=== PATIENT | male | born 1965 | race Caucasian/White ===

== ENCOUNTER 2024-04-02 10:13 | Day surgery (SDC) | payer OTHER, SELFPAY ==
[2024-04-02] VITALS (25 sets, daily range): BP systolic 128–171; BP diastolic 74–113; PULSE 49–147; RESP 14–20; TEMP 36.2–36.6; O2SAT 95–100; BMI 32.4
[2024-04-02] MEDS: OXYCODONE (CR) 10 MG TAB.ER.12H PO (10:15)
[2024-04-02] MEDS: ACETAMINOPHEN 500 MG TABLET 1000 MG PO ×2 (10:15→18:00)
--- NOTE | 2024-04-02 10:22 | W.ANESCHARGE ---
Anesthesia Charges Start Date/Time Anesthesia Start Date: 04/02/24 Anesthesia Start Time: 12:09 Stop Date/Time Anesthesia Stop Date: 04/02/24 Anesthesia Stop Time: 15:50
--- NOTE | 2024-04-02 11:26 | W.PM.H&PU ---
History & Physical Update History & Physical Update H&P Reviewed and patient assessed: No changes noted
--- NOTE | 2024-04-02 11:28 | CRLHL7_ITS ---
For Patients: As a result of the Cures Act, medical imaging exams and procedure reports are released immediately into your electronic medical record. You may view this report before your referring provider. If you have questions, please contact your health care provider. INDICATION: Right hip arthroplasty. COMPARISON: 04/02/2024 TECHNIQUE: Views: 2 FINDINGS/IMPRESSION: Intact total right hip arthroplasty. Expected postsurgical periarticular soft tissue emphysema. The sacrum and bilateral iliac wings are partially excluded from the field of view. Dictated by Anurag Khan MD @ 04/03/2024 11:00:21 AM (Electronically Signed)
[2024-04-02] MEDS: LACTATED RINGERS 1000 ML 1,000 ML 100 ML IV ×2 (11:35→14:49)
[2024-04-02] MEDS: MIDAZOLAM HCL 1 MG/ML inj IVP (11:50)
[2024-04-02] MEDS: fentaNYL 100 MCG/2 ML inj IVP (11:50)
--- NOTE | 2024-04-02 11:54 | SUR.PREOP ---
TIME?OUT:?1148, right hip PT/RN/MDA?VERIFICATION?OF?SURGICAL?SITE,?PROCEDURE,?AND?CONSENT OBTAINED?PRIOR?TO?INVASIVE?PROCEDURE.
--- NOTE | 2024-04-02 12:00 | CRLHL7_ITS ---
For Patients: As a result of the Cures Act, medical imaging exams and procedure reports are released immediately into your electronic medical record. You may view this report before your referring provider. If you have questions, please contact your health care provider. Indication: Right total hip arthroplasty. Technique: Single fluoroscopic intraoperative image of the right hip were submitted for review. 41 seconds of intraoperative fluoroscopy was performed. Comparison: None available. Findings/impression : Fluoroscopic intraoperative image of the right hip demonstrate anatomic alignment of the right hip prosthesis components on single view. No displaced fracture is seen. Please refer to operative report for additional details. Dictated by Marta Portillo MD @ 04/03/2024 9:46:26 AM (Electronically Signed)
--- NOTE | 2024-04-02 12:21 | P.NB_ITS ---
Nerve Block Nerve Block Time Seen by Provider: 11:48 Date Seen: 04/02/24 Type of block requested by surgeon for post-operative analgesia: DEMIAN/LFCN Side: right Time out performed: Yes Verification of patient name: Yes Verification of date of : Yes Site marking: site marked Name of person performing procedure: Kavin Continuous monitoring Was continuous monitoring of O2 sat, B/P, cardiac cath technician, recorded every 15 minutes?: Yes Procedure Checklist: sterile prep, needles and gloves Ultrasound guided. Images saved: Yes Medications given in 5ml increments after negative aspiration: Ropivicaine %: 0.5 mL: 30 Needle gauge: 20 Precedex (mcg): 25 Patient tolerated procedure well: Yes Additional comments: Needle noted below psoas tendon needle noted adjacent to LFCN Block Charges Block Charge (with Pro Fee): Other Periph Nerve Block Use of Ultrasound Machine for Block: Yes- US Guidance/pain block
[2024-04-02] MEDS: CEFAZOLIN 2 GM in 0.9 % SODIUM CHLORIDE Mini-bag 100 ML IVPB ×2 (12:32→18:00)
[2024-04-02] MEDS: TRANEXAMIC ACID 100 MG/ML INJ 1000 MG IV (12:37)
--- NOTE | 2024-04-02 14:51 | PM.ORPRC ---
Procedure Note Date of procedure: 04/02/24 Procedure: PREOPERATIVE DIAGNOSIS: 1. Right hip osteoarthritis, severe, primary POSTOPERATIVE DIAGNOSIS: 1. Right hip osteoarthritis, severe, primary PROCEDURE: 1. Right total hip arthroplasty-anterior approach - modified 22 (50% added time and difficulty for this case due to the patient's general body size (BMI 32.4 obese, 102 kg), his youth, and large muscle envelope around his thighs/hip. This made it very difficult to obtain exposure in a safe manner, and much more difficult to achieve safe reduction and dislocation of the hip during trialing.) 2. [id number] - intraoperative fluoroscopy up to 1 hour. SURGEON: Rashawn Hines MD. ELEVATOR OPERATOR SERVICE: Bj Sutton PA-C; ELLA Menard - Of note, a skilled assistant accounting manager was critical for this case to aid in patient positioning, tissue retraction, limb manipulation/positioning, and closure. ANESTHESIA: General endotracheal anesthetic EBL: 900 mL IMPLANTS: DePuy J&J uncemented total hip Aurora cup size 52, hole eliminator, +4 neutral liner Actis stem, high offset, size 7 +5 mm ceramic 36 mm head COMPLICATIONS: None evident INDICATIONS: The patient is a pleasant 58-year-old male who has experienced severe right hip pain and difficulty bearing weight. Workup included x-rays which revealed severe osteoarthrosis in the hip. Given the deformity, the dysfunction, and the pain, as well as the failure of nonoperative management, recommendation was made for surgery. FINDINGS: Full-thickness diffuse cartilage loss throughout the femoral head and acetabulum. Osteophytes around the femoral head/neck junction. No loose bodies. Large effusion upon entering the joint. Thick muscular envelope surrounding the thigh. DESCRIPTION OF PROCEDURE: Following a thorough discussion of risks, benefits, and alternatives consent was obtained and the right hip was marked. The patient was brought to the operating room and placed supine on the operating table. Induction of anesthesia was undertaken. 2 g IV Ancef and 1 g tranexamic acid was administered within 1 hr of incision preoperatively. Proper time-out was performed identifying proper patient, site, procedure. The operative extremity was prepped and draped in the appropriate sterile fashion using ChloraPrep after the patient was positioned on the [place] table with head in neutral alignment and all bony prominences well padded. C-arm fluoroscopic imaging was utilized to confirm proper pelvis rotation and position, and to get true AP films of both the contralateral left, and the affected right hip. This is for comparison. A longitudinal incision was made starting approximately 1 cm distal to the ASIS, and 3-4 cm lateral. The incision was extended distally aiming toward the lateral border the patella. Sharp incision through skin and bovie cautery through the subcutaneous tissue allowed identification of the TFL fascia. This was sharply divided, and the fascia bluntly released from the muscle fibers as we dissected medial. Upon coming to the medial border, we were able to retract the TFL laterally, and penetrated the deeper fascia and identify the crossing circumflex vessels. These were ligated/cauterized. The rectus was elevated from the capsule, and retractors placed laterally and medially along the femoral neck to help with visualization of the capsule. We then performed an inverted T capsulotomy. The capsule was tagged for later repair. Retractors were placed inside the capsule. The femoral neck was visualized after releasing medially down to the lesser trochanter, along the saddle laterally, and up onto the acetabulum. The femoral neck cut was made in line with our preoperative templating. The head was removed in a single piece, and sized. We turned our attention to acetabular preparation. Initially, the labrum was resected from around the perimeter, the pulvinar was excised, allowing us to visualize the false wall. We started the reaming with a 43 mm reamer. This was medialized down to the true wall. We then enlarged our reamers sequentially up to one size less than the selected cup size. We trialed at the same size and found it to have an excellent fit. The selected cup was then opened, inserted, and impacted in line with the goal of 40? of abduction, and 20-25? of anteversion. This was confirmed on C-arm fluoroscopic imaging to be in the appropriate/goal position. Once the cup was placed we placed a hole eliminator and a liner consistent with preop planning. Attention was turned to the femoral preparation. The limb was extended, externally rotated, and adducted. The posteromedial capsule was released, as retractors were placed allowing excellent access to the proximal femur. Initially a preparing box tender was followed by canal finder followed by various broaches. We broached sequentially up to the size noted above, found it to have excellent rotational control, and trialing various heads and necks, revealed that appropriate neck offset, and the above noted head size provided the greatest stability, and rastafarian of length, and offset. C-arm fluoroscopic imaging confirmed position of the stem, as well as leg lengths, which were compared with the pre procedure all fluoroscopic images. Trial implants were removed, the real femoral stem inserted, as was the appropriate head. After reducing, the leg was placed through range of motion and stability was confirmed anterior, posterior, and lateral. A 3 min Betadine soak was then performed, and thorough irrigation with normal saline followed. Closure of the capsule was performed with #1 PDS. Bleeding was confirmed to be controlled at this stage, and the TFL fascia was closed with #0 strata fix. Subcutaneous, and subcuticular closure was performed with 2-0 Vicryl and 4-0 Monocryl, respectively. Dressings were applied, and the patient was awoken from anesthesia and transferred the PACU in stable condition. A skilled assistant accounting manager was critical for this case to aid in patient positioning, tissue retraction, acetabular and proximal femoral exposure, limb manipulation/positioning, dislocation/relocation, patient safety, and closure. of note, 50% added time and difficulty for this case due to the patient's general body size (BMI 32.4 obese, 102 kg), his youth, and large muscle envelope around his thighs/hip. This required more retractors, varying retractors, increased number of assistants, and made it very difficult to obtain exposure in a safe manner, and much more difficult to achieve safe reduction and dislocation of the hip during trialing. PLAN: 1. Weight bear as tolerated operative extremity. 2. 23 hr perioperative antibiotics. 3. Ice. 4. PT/OT consults for ambulation assistance/mobility education. 5. Social work consult for discharge planning. 6. DVT prophylaxis with at SCDs and Xarelto x5 days followed by aspirin for a total of 1 month..
--- NOTE | 2024-04-02 15:07 | PM.IMCN1 ---
Date of Consult Patient: [facility] Patient Consult date: 04/02/24 Requesting Physician: Orthopedics Primary Care Provider: Tej Hernández MD Consult Narrative Reason for consult: Medical management Narrative: Adonis Wood is a 58 year old male past medical history significant for hypertension, anxiety, depression, back pain, hyperuricemia, previous history of sarcoidosis of the lung is POD#0 s/p right total hip arthroplasty with Dr. Bragg. There have been no perioperative complications or nursing concerns reported. Estimated total blood loss documented as 900 ml. Intermittently bradycardic. Blood pressures adequate, mildly hypertensive, despite blood loss. Has received IV fluids perioperatively. Updated and reviewed the active medical problems, past medical history, past surgical history, social history, allergies and medications in our electronic EMR. Postoperatively, patient complains of acutely worsened chronic back pain, difficult to get comfortable. Normally never lies on his back. Has some hip pain as well. Denies headache or dizziness. Denies chest pain or shortness of breath. No nausea. Tolerating ice chips at this point. Review of Systems Narrative: REVIEW OF SYSTEMS: Complete review of systems performed and negative unless otherwise stated in HPI or below. PFSH PFSH Medical History Sarcoidosis of lung ?D86.0 - Sarcoidosis of lung (ICD-10) Hypertension ?I10 - Essential (primary) hypertension (ICD-10) Cervicalgia ?M54.2 - Cervicalgia (ICD-10) Hyperuricemia ?E79.0 - Hyperuricemia without signs of inflammatory arthritis and tophaceous disease (ICD-10) Depression ?F32.A - Depression, unspecified (ICD-10) Anxiety state, unspecified ?F41.1 - Generalized anxiety disorder (ICD-10) Chewing tobacco dependence ?F17.220 - Nicotine dependence, chewing tobacco, uncomplicated (ICD-10) Opioid abuse ?F11.10 - Opioid abuse, uncomplicated (ICD-10) Alcohol abuse ?F10.10 - Alcohol abuse, uncomplicated (ICD-10) Surgical History History of carpal tunnel surgery of left wrist ?Z98.890 - Other specified postprocedural states (ICD-10) History of lumbar surgery ?Z98.890 - Other specified postprocedural states (ICD-10) History of arthroscopy of left knee (11/19/20) ?Z98.890 - Other specified postprocedural states (ICD-10) Social History Narrative: currently chewing tobacco Smoking Status: Never smoker Do you use any of these nicotine containing products: Smokeless Tobacco Second hand tobacco smoke exposure: No Meds Home Medications and Allergies Home Medications ?Medication ?Instructions ?Recorded ?Confirmed ?Type meloxicam 7.5 mg tablet 7.5 mg PO BID 12/29/23 04/02/24 History tamsulosin 0.4 mg capsule 0.4 mg PO DAILY 12/29/23 04/02/24 History acetaminophen 500 mg tablet 1,000 mg PO Q6H PRN 02/09/24 04/02/24 History (Tylenol Extra Strength) cholecalciferol (vitamin D3) 25 25 mcg PO QDAY 02/09/24 04/02/24 History mcg (1,000 unit) capsule (Vitamin D3) Allergies Allergy/AdvReac Type Severity Reaction Status Date / Time No Known Drug Allergies Allergy Verified 04/02/24 10:37 Exam Narrative: Exam Narrative: PHYSICAL EXAM General: Pleasant, conversant, NAD HEENT: Normocephalic, atraumatic, sclera white, EOMI, oral mucosa moist Cardiovascular: RRR, S1S2. No pitting edema Pulmonary: CTA bilaterally without rhonchi, rales, expiratory wheezes. No dyspnea Abdominal: Soft, nondistended, NTTP Neurological: Alert, answering questions appropriately, cranial nerves intact, no focal findings Extremities: No gross joint deformity or swelling. Postoperative dressing in place, dry. Neurovascularly intact Skin: Warm, dry. Const: Vital Signs, click to edit/add: Vital Signs - 24 hr 04/02/24 10:58 04/02/24 11:50 04/02/24 11:55 Temperature 97.8 F Pulse Rate 65 62 61 Respiratory Rate 20 20 16 Blood Pressure 146/86 H 128/84 131/88 Pulse Oximetry 98 99 100 Oxygen Delivery Me thod Room Air Nasal Cannula Nasal Cannula Oxygen Flow Rate 2 2 04/02/24 12:01 Temperature Pulse Rate 50 L Respiratory Rate 16 Blood Pressure 135/75 Pulse Oximetry 100 Oxygen Delivery Me thod Nasal Cannula Oxygen Flow Rate 2 Assessment and Plan Assessment and plan (1) Osteoarthritis of right hip: Problem comment: -POD#0 s/p R FREEDOM -perioperative management including pain management and anticoagulation per Orthopedic surgery -encourage postoperative pulmonary hygiene -PT OT consults -plan to discharge home tomorrow with Status: Acute (2) Hypertension: Problem comment: -not currently managed with medications. No history of hyperlipidemia Status: Acute Total Time Spent Total Time Spent: Total time spent caring for the patient today was 45 minutes. This includes time spent for the visit reviewing the chart, time spent during the visit, time spent after the visit and documentation and planning in coordination of care.
--- NOTE | 2024-04-02 15:57 | W.ANESCHARGE ---
Anesthesia Charges Start Date/Time Anesthesia Start Date: 04/02/24 Anesthesia Start Time: 12:09 Stop Date/Time Anesthesia Stop Date: 04/02/24 Anesthesia Stop Time: 15:50
[2024-04-02] MEDS: fentaNYL 100 MCG/2 ML inj 50 MCG IVP ×2 (16:00→16:11)
[2024-04-02] MEDS: HYDROmorphone 0.5 mg/0.5 ml inj IVP ×2 (16:56→18:00)
[2024-04-02] MEDS: OXYCODONE 5 MG TABLET PO ×2 (19:06→22:22)
--- NOTE | 2024-04-02 19:43 | PC.NURSE ---
Nursing Care Hours: [id number] Pt arrived to unit from PACU awake but drowsy and somewhat restless. C/o pain to right hip and back spasms. Attempted to reposition with minimal relief. Pt shivering but then moving blankets on and off, needing assistance with frequent urination using urinal. During routine check, pt c/o hyperventilating feeling without observable respiratory distress. Pulse on monitor showed 140's HR, radial pulse palpated and slightly faint. EKG done, shows sinus tach. While staff preparing to give bolus of fluids and metoprolol, pt switched to NSR rate around 60's and pt anxious symptoms relieved. Bolus and meds held. Tele monitor placed. Pt assisted to dangle position to relieve low back pain. Once staff deemed safe, Ax2 with walker and gait belt to recliner, tolerated well. On and off shivering rest of shift, relieved by warm blankets. tolerated regular diet. IS used.
[2024-04-02] MEDS: TAMSULOSIN HCL 0.4 MG CAPSULE PO (22:21)
[2024-04-02] MEDS: SENNOSIDES 1 TAB TABLET 2 TAB PO (22:23)
[2024-04-03] MEDS: hydrOXYzine pamoate 25 MG CAPSULE PO (01:28)
[2024-04-03] MEDS: OXYCODONE 5 MG TABLET PO ×3 (01:28→09:11)
[2024-04-03] MEDS: ACETAMINOPHEN 500 MG TABLET 1000 MG PO ×2 (01:31→06:41)
[2024-04-03] MEDS: CEFAZOLIN 2 GM in 0.9 % SODIUM CHLORIDE Mini-bag 100 ML IVPB (03:08)
[2024-04-03 03:36] VITALS: BP 148/68; PULSE 78; RESP 18; TEMP 36.4; O2SAT 97
--- NOTE | 2024-04-03 05:25 | PC.NURSE ---
Pt pleasant and cooperative. Alot of his pain he states is in his knee on the right. VSS He is eating and voiding well. He has been restless a majority of the night. he has been given pain meds appropiately. He was up in chair for a while this afternoon. He walked to the door and back to bed. Hip drsg is CDI has been having ice on it. pt home with in the am.
[2024-04-03 06:45] LABS: Hemoglobin* 11.3 gm/dL (13.5-17.5); Immature Granulocytes Abs Auto 0.01 K/uL (0.00-0.30); Immature Granulocytes Pct Auto 0.1 %; Lymphocytes Percent Auto 17.9 % (20-44); Mean Corpuscular HGB Conc 33 gm/dL (32-36); Mean Corpuscular Hemoglobin 30 pg (26-34); Mean Corpuscular Volume 90 fL (80-100); Monocytes Percent Auto 10.8 % (0.0-11.0); Neutrophils Absolute Auto 5.82 K/uL (1.7-7.0); Neutrophils Percent Auto 71.2 % (42.0-72.0); Platelet Count* 201 K/uL (140-440); RDW Coefficient of Variation % 13.1 % (11.5-15.5); White Blood Count* 8.17 K/uL (4.50-11.00)
[2024-04-03 06:46] LABS: Slide Review Reflex No
[2024-04-03 06:58] LABS: Potassium* 3.9 mmol/L (3.6-5.1); Sodium* 135 mmol/L (135-149)
[2024-04-03 07:00] VITALS: BP 137/79; PULSE 70; RESP 18; TEMP 37.1; O2SAT 98
[2024-04-03 07:01] LABS: Blood Urea Nitrogen* 17 mg/dL (7-30); Creatinine* 0.8 mg/dL (0.5-1.5); Est. Creatinine Clearance* 106.46; Estimated Glomerular Filt Rate 104 ml/min
[2024-04-03] MEDS: SENNOSIDES 1 TAB TABLET 2 TAB PO (09:11)
--- NOTE | 2024-04-03 09:18 | RESP.RT ---
Patient given Spacer for Albuterol MDI use. Explained advantages of using Spacer with MDI and demonstation of use. Patient returned demonstration with excellent inhalation and timing of breath. Understands the advantage of Spacer and verbally states so.
--- NOTE | 2024-04-03 09:43 | PM.EN ---
Chart Event Note Chart Event Note: Patient had a brief tachycardia episode yesterday around 17 30, lasting less than 5 minutes bring, heart rate was in the 150s. Primary P-wave was hardly seen of though the rate was pretty regular. There is a concern that this might be paroxysmal AFib that the patient is not aware of. He mentioned that this is the 1st time he feels palpitations. I discussed with the patient and his the need to follow-up with PCP postoperatively and if needed be referred to a respite coordinator. I also discussed the implications of this diagnosis if it was proven, likely needs for anticoagulation/rhythm control or just monitoring for now per the specialist recommendation.
--- NOTE | 2024-04-03 09:56 | P.ORPN_ITS ---
Subjective Subjective Date Seen: 04/03/24 Principal diagnosis: Status postop day 1, right total hip arthroplasty - anterior approach Interval history: Patient reports doing well. No acute events over night. Per staff, there was some tachycardia that has since resolved. Patient is not feeling symptomatic regarding this. Notes some ipsilateral right knee pain which is chronic. Pain managed with scheduled and PRN medications, ice. DVT prophylaxis: Rivaroxaban, SCDs, walking. Denies fevers, chills, aches, N/V, CP, SOB/LEES, or lightheadedness. Ortho Exam Narrative Exam Narrative: -Patient appears comfortable in recliner; no apparent acute distress -Alert and oriented times 3 -Operative hip mild-moderately; soft tissues supple; no obvious erythema. Ecch ymosis minimal. Warmth appropriate -Surgical dressing clean, dry, intact; no obvious drainage, no erythematous streaking peripheral to the bandage -Bilateral calves soft and supple; no significant swelling, edema, tenderness, erythema, discoloration, warmth, or palpable cords -2+ DP/PT pulses, intact dermatomes and myotomes distally (5/5 strength). Const Vital Signs, click to edit/add: Vital Signs - 24 hr 04/02/24 10:58 04/02/24 11:50 04/02/24 11:55 Temperature 97.8 F Pulse Rate 65 62 61 Pulse Rate [Right Pulse Oximeter] Respiratory Rate 20 20 16 Blood Pressure 146/86 H 128/84 131/88 Blood Pressure [Left Arm] Pulse Oximetry 98 99 100 Oxygen Delivery Method Room Air Nasal Cannula Nasal Cannula Oxygen Flow Rate 2 2 04/02/24 12:01 04/02/24 15:45 04/02/24 15:50 Temperature 97.2 F L Pulse Rate 50 L 58 L 51 L Pulse Rate [Right Pulse Oximeter] Respiratory Rate 16 18 18 Blood Pressure 135/75 167/90 H 166/96 H Blood Pressure [Left Arm] Pulse Oximetry 100 99 99 Oxygen Delivery Method Nasal Cannula Room Air Room Air Oxygen Flow Rate 2 04/02/24 15:55 04/02/24 16:00 04/02/24 16:05 Temperature Pulse Rate 63 58 L 57 L Pulse Rate [Right Pulse Oximeter] Respiratory Rate 16 16 16 Blood Pressure 170/83 H 155/88 H 160/84 H Blood Pressure [Left Arm] Pulse Oximetry 96 99 99 Oxygen Delivery Method Room Air Room Air Room Air Oxygen Flow Rate 04/02/24 16:10 04/02/24 16:15 04/02/24 16:20 Temperature 97.2 F L Pulse Rate 54 L 52 L 49 L Pulse Rate [Right Pulse Oximeter] Respiratory Rate 16 16 16 Blood Pressure 158/91 H 157/83 H 156/98 H Blood Pressure [Left Arm] Pulse Oximetry 99 98 97 Oxygen Delivery Method Room Air Room Air Room Air Oxygen Flow Rate 04/02/24 16:23 04/02/24 16:30 04/02/24 16:45 Temperature 97.6 F Pulse Rate 54 L 62 63 Pulse Rate [Right Pulse Oximeter] Respiratory Rate 14 14 14 Blood Pressure 171/90 H 135/94 H 153/95 H Blood Pressure [Left Arm] Pulse Oximetry 100 97 97 Oxygen Delivery Method Room Air Room Air Room Air Oxygen Flow Rate 04/02/24 17:00 04/02/24 17:30 04/02/24 18:00 Temperature Pulse Rate 113 H 147 H 87 Pulse Rate [Right Pulse Oximeter] Respiratory Rate 16 18 16 Blood Pressure 169/96 H 145/113 H 148/93 H Blood Pressure [Left Arm] Pulse Oximetry 95 98 97 Oxygen Delivery Method Room Air Room Air Room Air Oxygen Flow Rate 04/02/24 18:30 04/02/24 20:00 04/02/24 21:00 Temperature 97.6 F 97.6 F Pulse Rate 97 97 94 Pulse Rate [Right Pulse Oximeter] Respiratory Rate 16 18 18 Blood Pressure 148/98 H 155/100 H 150/90 H Blood Pressure [Left Arm] Pulse Oximetry 97 99 98 Oxygen Delivery Method Room Air Room Air Room Air Oxygen Flow Rate 04/02/24 22:00 04/02/24 23:00 04/02/24 23:50 Temperature 97.6 F Pulse Rate 77 84 Pulse Rate [Right Pulse Oximeter] 71 Respiratory Rate 18 18 Blood Pressure 145/75 H Blood Pressure [Left Arm] 141/74 H Pulse Oximetry 97 97 Oxygen Delivery Method Room Air Room Air Oxygen Flow Rate 04/02/24 23:58 04/03/24 03:36 04/03/24 07:00 Temperature 97.6 F Pulse Rate Pulse Rate [Right Pulse Oximeter] 78 Respiratory Rate 18 18 Blood Pressure Blood Pressure [Left Arm] 148/68 H Pulse Oximetry 97 97 98 Oxygen Delivery Method Room Air Room Air Room Air Oxygen Flow Rate 04/03/24 07:00 Temperature 98.8 F Pulse Rate Pulse Rate [Right Pulse Oximeter] 70 Respiratory Rate 18 Blood Pressure Blood Pressure [Left Arm] 137/79 Pulse Oximetry 98 Oxygen Delivery Method Room Air Oxygen Flow Rate Assessment and Plan Assessment and plan (1) Osteoarthritis of right hip: Problem details: -POD#1 s/p R FREEDOM -perioperative management including pain management and anticoagulation per Orthopedic surgery -encourage postoperative pulmonary hygiene -PT OT consults -plan to discharge home with Status: Acute (2) Hypertension: Problem details: -not currently managed with medications. No history of hyperlipidemia Status: Acute Plan - Complete 23 hour perioperative antibiotics. - PT/OT consult for education and assistance. - Social work consult for discharge planning - Prescribed analgesics as needed - DVT prophylaxis: Rivaroxaban 5 days, followed by 81 mg aspirin by mouth twice daily, walking, and SCDs - Anticipation is for discharge to home with family/friends today 04/03/2024 if the patient remains medically stable, pain is controlled, and they are safe with mobilization.
--- NOTE | 2024-04-03 11:41 | PC.NURSE ---
shift note: pt up 1/walker with steady gait. pt medicated with PRN meds for 4-8/10 pain in rt knee. slight swelling to rt thigh. drsg c/d/i to rt upper thigh. PP+ bilat. LS clr. Pt using IS indept. dc'd IV intact. Reviewed dc instructions and copies sent with pt at dc. Reviewed belongings and home medications. Items sent with pt at dc.
== END 2024-04-03 11:10 | disposition home or self-care (01) ==
LOC: OR 10:15 → MEDSURG 10:31
PROVIDERS: PCP Family Medicine; Visit Provider Orthopaedic Surgery Sports Medicine
PROC: (CPT 27130; principal; 2024-04-02 12:00)
DX: M16.11 Unilateral primary osteoarthritis, right hip (principal); G89.18 Other acute postprocedural pain; E66.9 Obesity, unspecified; Z68.32 Body mass index [BMI] 32.0-32.9, adult; I10 Essential (primary) hypertension; R00.0 Tachycardia, unspecified; R00.1 Bradycardia, unspecified; G89.29 Other chronic pain; M54.9 Dorsalgia, unspecified; D86.0 Sarcoidosis of lung; F32.A Depression, unspecified; F41.1 Generalized anxiety disorder
CPT/HCPCS: 27130; 01214; 36415; 64450; 73501; 76942; 82565; 84132; 84295; 84520; 85025; 86850; 86900; 86901; 97110; 97116; 97161; 97165; 97535; A9270; C1776; J0330; J0690; J1100; J1171; J2250; J2405; J2704; J2710; J2795; J3010; J3475; J3490; J7120

== ENCOUNTER 2024-05-17 09:15 | Outpatient (RCR) | payer OTHER, SELFPAY | END 2024-07-12 14:46 | disposition home or self-care (01) | PROVIDERS: PCP Family Medicine; Visit Provider Orthopaedic Surgery Sports Medicine | DX: M16.11 Unilateral primary osteoarthritis, right hip (principal); Z96.641 Presence of right artificial hip joint; Z51.89 Encounter for other specified aftercare | CPT/HCPCS: 97032; 97110; 97161; 97164 ==

== ENCOUNTER 2024-07-18 06:08 | Day surgery (SDC) | payer OTHER, SELFPAY ==
[2024-07-18] VITALS (15 sets, daily range): BP systolic 123–186; BP diastolic 70–114; PULSE 64–84; RESP 14–16; TEMP 36.3–36.9; O2SAT 94–100; BMI 34.4
--- OUTSIDE RECORDS SUMMARY | 2024-07-18 06:12 | XMS_ITS | Clinical Summary ---
Author Organization [facility] Address [address] [place] [phone] Phone Care Team Providers Care Platinumsmith Name Role Phone Pcp, No Primary Care Provider Unavailabl e Source Comments [facility] is fully rolled out on [employer]. Last update 11/01/08.[facility] Allergies No known active allergies Medications * Be aware that medications may not be up to date as of this document. Always verify current medications with patient. aripiprazole (ABILIFY) 10 mg oral tabletIndicatio ns:Mixed Bipolar Affective Disorder Take 1 tablet (10 mg) by mouth daily. 30 tablet 05/16/2015 3:47 PM RESUME SPECIALIST 05/16/2015 Active simvastatin (ZOCOR) 20 mg oral tabletIndicatio ns:hyperlipidem ia Take 1 tablet (20 mg) by mouth at bedtime. 30 tablet 05/16/2015 3:47 PM RESUME SPECIALIST 05/16/2015 Active doxepin (SINEQUAN) 25 mg oral capsule Take 1 capsule (25 mg) by mouth at bedtime. 14 capsule 1 05/29/2015 Active Active Problems Problem Noted Date Diagnosed Date Bipolar II disorder (CMS/HHS) 05/19/2015 Alcohol use disorder, moderate, dependence (CMS/ HHS) 05/09/2015 Chronic radicular low back pain 05/09/2015 Suicide attempt (CMS/HHS) 05/07/2015 Resolved Problems Problem Noted Date Diagnosed Date Resolved Date Carbon monoxide poisoning 05/07/2015 Carbon monoxide exposure 05/07/201503/2015 Family History Medical History Relation Name Comments Alcohol abuse Brother Brothers Alcohol abuse Father Alcohol abuse Mother Mental illness Other All over in f amily people on antidepressants - No diagnoses of Bipolar or mood disorder Relation Name Status Comments Brother Father Mother Other Social History Tobacco Use Types Packs/Day Years Used Date Smoking Tobacco: Never Smokeless Tobacco: Current Chew Tobacco Cessation:Ready to Q uit: No; Counseling Given: No Alcohol Use Standard Drinks/Week Comments Yes 0 (1 standard drink = 0.6 oz pur e alcohol) Sex and Gender Information Value Date Recorded Sex Assigned at Not on file Legal Sex Male 1:45 PM RESUME SPECIALIST Gender Identity Not on file Sexual Orientation Not on file Occupation Industry Job Start Date Job End Date 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 on file Last Filed Vital Signs Vital Sign Reading Time Taken Comments Blood Pressure 157/94 06/02/2015 10:33 AM RESUME SPECIALIST Pulse 82 06/02/2015 10:33 AM RESUME SPECIALIST Temperature 36.3 C (97.3 F) 05/17/2015 8:00 AM RESUME SPECIALIST Respiratory Rate 18 05/17/2015 8:00 AM RESUME SPECIALIST Oxygen Saturation 98% 05/15/2015 8:11 AM RESUME SPECIALIST Inhaled Oxygen Concentration - - Weight 124.3 kg (274 lb) 06/02/2015 10:33 AM RESUME SPECIALIST Height 177.8 cm (5' 10) 06/02/2015 10:33 AM RESUME SPECIALIST Body Mass Index 39.31 06/02/2015 10:33 AM RESUME SPECIALIST Plan of Treatment Health Maintenance Due Date Last Done Comments CT Colonography 1967 Colonoscopy 1967 Colorectal Cancer Screening 1967 Dental Oral Exam 1967 Dental Prophylaxis 1967 Dental X-Ray: Bitewings 1967 FIT/Cologuard 1967 Sigmoidoscopy 1967 iFOB/FIT 1967 Periodontal Maintenance 1981 HIV Screening 1982 PREVENTATIVE VISIT 1985 HEALTH MAINTENANCE PROTOCOL 1986 Imm: DTaP/Tdap (1 - Tdap) 1986 Imm: HepB (1 of 3 - 19+ 3-do se series) 1986 Imm: Pneumonia 50 years and older (1 of 1 - PCV) 2017 Imm: Zoster (1 of 2) 2017 Lipid Screening 05/10/2020 05/10/2015 Imm: COVID-19 ( season) 2024 Imm: Flu (#1) 01/29/2024 Imm: HPV Aged Out No longer eligi ble based on patient's age to complete this topic Imm: HepA Aged Out No longer eligi ble based on patient's age to complete this topic Imm: Hib Aged Out No longer eligi ble based on patient's age to complete this topic Imm: Meningitis Aged Out No longer el igible based on patient's age to complete this topic Imm: Pneumonia Peds or At-Ri sk less than 50 years Aged Out No longer eligible b ased on patient's age to complete this topic Procedures Procedure Name Priority Date/Time Associated Diagnosis Comments PANEL LIPID Routine 05/10/2015 10:04 AM RESUME SPECIALIST from Last 3 Months or Most Recently Relevant to Health Maintenance Results * (ABNORMAL) PANEL LIPID (05/10/2015 10:04 AM RESUME SPECIALIST) Cholesterol 174 0 - 200 mg/dL [facility] Comment: Borderline High(0-17yrs): 170-199 mg/dL Borderline High(18+ yrs): 200-239 mg/dL High (0-17yrs): >=200 mg/dL High (18+ yrs): >=240 mg/dL Triglyceride 294(H) <=150 mg/dL [facility] Comment: Borderline (0-9 yrs): 75-99 mg/dL Borderline (10-17 yrs): 90-129 mg/dL Borderline (18+ yrs): 150-199 mg/dL High (0-9 yrs): >=100 mg/dL High (10-17 yrs): >=130 mg/dL High (18+ yrs): >=200 mg/dL HDL 34(L) 40 - 60 mg/dL [facility] Comment:Desirable: >60 mg/dL Calc LDL 81 <=100 mg/dL [facility] Comment: Near Optimal(18+ yrs): 100-129 mg/dL Borderline(0-17 yrs): 110-129 mg/dL Borderline(18+ yrs): 130-159 mg/dL High(0-17 yrs): >=130 mg/dL High (18+ yrs): >=160 mg/dl Calc VLDL 59 [facility] Lipid Panel Performed at: [facility] Comment: [facility] [address] [place] [id number] Blood specimen (specimen) 05/10/2015 10:04 AM RESUME SPECIALIST 05/10/2015 10:29 AM RESUME SPECIALIST Narrative [facility] - 05/10/2015 11:03 AM RESUME SPECIALIST Fasting: Yes us Saray Pretty PROCESS DEVELOPER, SEISMOGRAPH RECORDER LABORATORY Khang jayden Result - Final [facility] [address] [place] [address] from Last 3 Months or Most Recently Relevant to Health Maintenance Insurance MEDICA Advance Directives For more information, please contact: [phone] * Full Code (Latest Code Status on File) Date Activated Date Inactivated Comments 05/09/2015 12:07 PM 05/17/2015 1:33 PM Question Answer Comments Discussed Code Status With Whom? Patient * Full Code Date Activated Date Inactivated Comments 05/07/2015 7:02 PM 05/09/2015 12:07 PM Question Answer Comments Discussed Code Status With Whom? Not discussed Care Teams Platinumsmith Relationship Specialty Start Date End Date Pcp, No [facility] [place] [address] PCP - General 05/07/15
--- OUTSIDE RECORDS SUMMARY | 2024-07-18 06:12 | XMS_ITS | Referral Summary ---
Author Organization [facility] Address [address] [place] [address] Phone Care Team Providers Care Destination Imagination Coordinator Name Role Phone Pcp, No Primary Care Provider Unavailabl e Source Comments [facility] is fully rolled out on [employer]. Last update 11/01/08.[facility] Allergies No known active allergies Medications * Be aware that medications may not be up to date as of this document. Always verify current medications with patient. aripiprazole (ABILIFY) 10 mg oral tabletIndicatio ns:Mixed Bipolar Affective Disorder Take 1 tablet (10 mg) by mouth daily. 30 tablet 05/16/2015 3:47 PM BEHAVIORAL SCIENCES DEPARTMENT CHAIR 05/16/2015 Active simvastatin (ZOCOR) 20 mg oral tabletIndicatio ns:hyperlipidem ia Take 1 tablet (20 mg) by mouth at bedtime. 30 tablet 05/16/2015 3:47 PM BEHAVIORAL SCIENCES DEPARTMENT CHAIR 05/16/2015 Active doxepin (SINEQUAN) 25 mg oral capsule Take 1 capsule (25 mg) by mouth at bedtime. 14 capsule 1 05/29/2015 Active Active Problems Problem Noted Date Diagnosed Date Bipolar II disorder ([facility]) 05/19/2015 Alcohol use disorder, moderate, dependence ([facility]/ HHS) 05/09/2015 Chronic radicular low back pain 05/09/2015 Suicide attempt ([facility]/HHS) 05/07/2015 Resolved Problems Problem Noted Date Diagnosed Date Resolved Date Carbon monoxide poisoning 05/07/2015 Carbon monoxide exposure 05/07/201503/2015 Social History Tobacco Use Types Packs/Day Years Used Date Smoking Tobacco: Never Smokeless Tobacco: Current Chew Tobacco Cessation:Ready to Q uit: No; Counseling Given: No Alcohol Use Standard Drinks/Week Comments Yes 0 (1 standard drink = 0.6 oz pur e alcohol) Sex and Gender Information Value Date Recorded Sex Assigned at Not on file Legal Sex Male 1:45 PM BEHAVIORAL SCIENCES DEPARTMENT CHAIR Gender Identity Not on file Sexual Orientation Not on file Occupation Industry Job Start Date Job End Date 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 on f ile Not on file Last Filed Vital Signs Vital Sign Reading Time Taken Comments Blood Pressure 157/94 06/02/2015 10:33 AM BEHAVIORAL SCIENCES DEPARTMENT CHAIR Pulse 82 06/02/2015 10:33 AM BEHAVIORAL SCIENCES DEPARTMENT CHAIR Temperature 36.3 C (97.3 F) 05/17/2015 8:00 AM BEHAVIORAL SCIENCES DEPARTMENT CHAIR Respiratory Rate 18 05/17/2015 8:00 AM BEHAVIORAL SCIENCES DEPARTMENT CHAIR Oxygen Saturation 98% 05/15/2015 8:11 AM BEHAVIORAL SCIENCES DEPARTMENT CHAIR Inhaled Oxygen Concentration - - Weight 124.3 kg (274 lb) 06/02/2015 10:33 AM BEHAVIORAL SCIENCES DEPARTMENT CHAIR Height 177.8 cm (5' 10) 06/02/2015 10:33 AM BEHAVIORAL SCIENCES DEPARTMENT CHAIR Body Mass Index 39.31 06/02/2015 10:33 AM BEHAVIORAL SCIENCES DEPARTMENT CHAIR Plan of Treatment Not on file Procedures Procedure Name Priority Date/Time Associated Diagnosis Comments PANEL LIPID Routine 05/10/2015 10:04 AM BEHAVIORAL SCIENCES DEPARTMENT CHAIR from Last 3 Months or Most Recently Relevant to Health Maintenance Results * (ABNORMAL) PANEL LIPID (05/10/2015 10:04 AM BEHAVIORAL SCIENCES DEPARTMENT CHAIR) Cholesterol 174 0 - 200 mg/dL [facility] Comment: Borderline High(0-17yrs): 170-199 mg/dL Borderline High(18+ yrs): 200-239 mg/dL High (0-17yrs): >=200 mg/dL High (18+ yrs): >=240 mg/dL Triglyceride 294(H) <=150 mg/dL [facility] Comment: Borderline (0-9 yrs): 75-99 mg/dL Borderline (10-17 yrs): 90-129 mg/dL Borderline (18+ yrs): 150-199 mg/dL High (0-9 yrs): >=100 mg/dL High (10-17 yrs): >=130 mg/dL High (18+ yrs): >=200 mg/dL HDL 34(L) 40 - 60 mg/dL [facility] Comment:Desirable: >60 mg/dL Calc LDL 81 <=100 mg/dL [facility] Comment: Near Optimal(18+ yrs): 100-129 mg/dL Borderline(0-17 yrs): 110-129 mg/dL Borderline(18+ yrs): 130-159 mg/dL High(0-17 yrs): >=130 mg/dL High (18+ yrs): >=160 mg/dl Calc VLDL 59 [facility] Lipid Panel Performed at: [facility] Comment: [facility] [address] [place] [address] Blood specimen (specimen) 05/10/2015 10:04 AM BEHAVIORAL SCIENCES DEPARTMENT CHAIR 05/10/2015 10:29 AM BEHAVIORAL SCIENCES DEPARTMENT CHAIR Narrative [facility] - 05/10/2015 11:03 AM BEHAVIORAL SCIENCES DEPARTMENT CHAIR Fasting: Yes us Saray Pretty WIRE ROPE FABRICATION SUPERVISOR, ELECTION CLERK LABORATORY Khang jayden Result - Final [facility] [address] [place] [address] from Last 3 Months or Most Recently Relevant to Health Maintenance Insurance MEDICA Advance Directives For more information, please contact: [phone] * Full Code (Latest Code Status on File) Date Activated Date Inactivated Comments 05/09/2015 12:07 PM 05/17/2015 1:33 PM Question Answer Comments Discussed Code Status With Whom? Patient * Full Code Date Activated Date Inactivated Comments 05/07/2015 7:02 PM 05/09/2015 12:07 PM Question Answer Comments Discussed Code Status With Whom? Not discussed Care Teams Destination Imagination Coordinator Relationship Specialty Start Date End Date Pcp, No [facility] [place] [address] PCP - General 05/07/15
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
--- OUTSIDE RECORDS SUMMARY | 2024-07-18 06:12 | XMS_ITS | Clinical Summary ---
Author Organization [facility] Address [address] , [address] [place] [address] Phone Care Team Providers Care Lint Cleaner Name Role Phone Candida Aceves Unavailable Unavailable Conditions or Problems Problem Name Problem Code Onset Date Status Entry Date Provider Comment Standard Description Annotate Median neuropathy, right 304251045 (SNOMED CT) Active Onesimo Dukes MD Median neuropathy Left median neuropathy 913940110 (SNOMED CT) Active Onesimo Dukes MD Median neuropathy Bilat carpal tunnel syndrome G56.00 (ICD-10-CM) Active Clinton Mendenhall MD Carpal tunnel syndrome, unspecified upper limb Paresthesia, hands 238160005 (SNOMED CT) Active Clinton Mendenhall MD Paresthesia of hand Medications No information available. Medications Administered No information available. Allergies, Adverse Reactions, Alerts No information available. Results Date Name Value Unit Range Flag Description Internal Other: Authorizatio n - OBS PTSTAUTHDT 1 N PT Startin g Authorization Date Clinical Lists Update: Metho d of Contact METH[employer]TA[employer] phone Patient's prefered method of contact Plan of Care No information available. Procedures Code Procedure Name Date Entry Date CPT-80058 Nerve Conduction 9-10 studies CPT-43553 EMG with NCS (5+ muscles) - 2 limbs 07/24 CPT-72118 Nerve Conduction 9-10 studies CPT-74281 EMG with NCS (5+ muscles) - 2 limbs 03/24 Vital Signs No information available. Immunizations No information available. Advance Directives No information available.
[2024-07-18] MEDS: SODIUM CHLORIDE 0.9 % (FLUSH) 10 ML SYRINGE IVF (07:04)
[2024-07-18] MEDS: 0.9 % SODIUM CHLORIDE 500 ML 500 ML 100 ML IV (07:06)
--- NOTE | 2024-07-18 07:08 | SUR.PREOP ---
TIME?OUT:?0710 PT/RN/MDA?VERIFICATION?OF?SURGICAL?SITE,?PROCEDURE,?AND?CONSENT OBTAINED?PRIOR?TO?INVASIVE?PROCEDURE.
[2024-07-18] MEDS: MIDAZOLAM HCL 1 MG/ML inj IVP (07:11)
[2024-07-18] MEDS: fentaNYL 100 MCG/2 ML inj IVP (07:11)
--- NOTE | 2024-07-18 07:18 | W.PM.H&PU ---
History & Physical Update History & Physical Update H&P Reviewed and patient assessed: No changes noted
[2024-07-18] MEDS: CEFAZOLIN 2 GM in 0.9 % SODIUM CHLORIDE Mini-bag 100 ML IVPB (07:32)
[2024-07-18] MEDS: EPINEPHrine 1 MG in SODIUM CHLORIDE IRRIG SOLUTION 3,000 ML 3001 MG IRRIGATION ×2 (08:03→09:00)
--- NOTE | 2024-07-18 08:45 | P.NB_ITS ---
Nerve Block Nerve Block Time Seen by Provider: 07:15 Date Seen: 07/18/24 Type of block requested by surgeon for post-operative analgesia: supraclavicular Side: right Time out performed: Yes Verification of patient name: Yes Verification of date of : Yes Site marking: site marked Name of person performing procedure: Kavin Continuous monitoring Was continuous monitoring of O2 sat, B/P, cardiac cath lab manager, recorded every 15 minutes?: Yes Procedure Checklist: sterile prep, needles and gloves Ultrasound guided. Images saved: Yes Medications given in 5ml increments after negative aspiration: Ropivicaine %: 0.5 mL: 20 Needle gauge: 22 Precedex (mcg): 25 Patient tolerated procedure well: Yes Block Charges Block Charge (with Pro Fee): Brachial Plexus Use of Ultrasound Machine for Block: Yes- US Guidance/pain block
--- NOTE | 2024-07-18 08:46 | P.ANES_ITS ---
Anesthesia Charges Start Date/Time Anesthesia Start Date: 07/18/24 Anesthesia Start Time: 07:23 Stop Date/Time Anesthesia Stop Date: 07/18/24 Anesthesia Stop Time: 09:42 Coding CPT Codes CPT Codes: ANESTH SURGERY OF SHOULDER - 45388 ([id number]) P2 - PATIENT W/MILD SYST DISEASE, QK - PERSONAL DEVELOPMENT EDUCATOR 2-4 CNCRNT ANES PROC, QX - PLATEN GRINDER SVC W/ MD MED DIRECTION
--- NOTE | 2024-07-18 08:46 | W.ANESCHARGE ---
Anesthesia Charges Start Date/Time Anesthesia Start Date: 07/18/24 Anesthesia Start Time: 07:23 Stop Date/Time Anesthesia Stop Date: 07/18/24 Anesthesia Stop Time: 09:42 Coding CPT Codes CPT Codes: ANESTH SURGERY OF SHOULDER - 24375 ([id number]) P2 - PATIENT W/MILD SYST DISEASE, QK - AUTOCAD DRAFTSMAN 2-4 CNCRNT ANES PROC, QX - PROGRAM TRAINER SVC W/ MD MED DIRECTION
[2024-07-18] MEDS: 0.9 % SODIUM CHLORIDE 500 ML 500 ML 30 ML IV (09:20)
--- NOTE | 2024-07-18 09:41 | P.ANES_ITS ---
Anesthesia Charges Start Date/Time Anesthesia Start Date: 07/18/24 Anesthesia Start Time: 07:23 Stop Date/Time Anesthesia Stop Date: 07/18/24 Anesthesia Stop Time: 09:42 Coding CPT Codes CPT Codes: ANESTH SURGERY OF SHOULDER - 57627 ([id number]) P2 - PATIENT W/MILD SYST DISEASE, QK - RN REVIEW 2-4 CNCRNT ANES PROC, QX - VIDEO TAPE TRANSFERRER SVC W/ MD MED DIRECTION
--- NOTE | 2024-07-18 09:41 | W.ANESCHARGE ---
Anesthesia Charges Start Date/Time Anesthesia Start Date: 07/18/24 Anesthesia Start Time: 07:23 Stop Date/Time Anesthesia Stop Date: 07/18/24 Anesthesia Stop Time: 09:42 Coding CPT Codes CPT Codes: ANESTH SURGERY OF SHOULDER - 14131 ([id number]) P2 - PATIENT W/MILD SYST DISEASE, QK - CHEMICAL LABORATORY ASSISTANT 2-4 CNCRNT ANES PROC, QX - MACHINES TECHNICIAN SVC W/ MD MED DIRECTION
--- NOTE | 2024-07-18 15:04 | P.ORPRC_ITS ---
Procedure Note Date of procedure: 07/18/24 Procedure: PREOPERATIVE DIAGNOSES: 1. Right shoulder long head of biceps partial-thickness tearing 2. Right shoulder AC joint osteoarthrosis, primary, moderate-severe with inferior osteophyte indenting the supraspinatus. 3. Right shoulder labral tearing. 4. Right shoulder subacromial impingement syndrome. POSTOPERATIVE DIAGNOSES: 1. Right shoulder rotator cuff tear (upper border subscapularis with moderate retraction) 2. Right shoulder long head of biceps partial-thickness tearing 3. Right shoulder AC joint osteoarthrosis, primary, moderate-severe with inferior osteophyte indenting the supraspinatus. 4. Right shoulder labral tearing. 5. Right shoulder subacromial impingement syndrome. NAME OF OPERATION: 1. Right shoulder arthroscopic rotator cuff repair - upper border subscapularis 2. Right shoulder arthroscopic biceps tenodesis 3. Right shoulder arthroscopic distal clavicle excision 4. Right shoulder arthroscopic limited glenohumeral debridement 5. Right shoulder arthroscopic bursectomy, subacromial decompression/partial acromioplasty. SURGEON: Rashawn Hines MD DIEING OUT MACHINE OPERATOR: Bj Sutton PA-C. Of note, a skilled assistant professor of physics was critical for this case to aide in patient positioning, suture manipulation, arm positioning, instrument positioning, and closure. ANESTHESIA: General plus preoperative supraclavicular block. EBL: 25 mL IMPLANTS: Arthrex 4.75 mm BioComposite SwiveLock suture anchor (x1) COMPLICATIONS: None evident INDICATIONS: The patient is a pleasant, 59-year-old male who has experienced right shoulder pain that has been increasing in recent time. Physical exam and imaging were consistent with a rotator cuff tear. Given their findings, as well as the weakness and pain, and inadequate response to nonoperative management, recommendation was made for surgery. FINDINGS: Exam under anesthesia revealed stable shoulder with excellent range of motion. The diagnostic arthroscopy revealed relatively healthy articular cartilage glenohumeral joint. The Subscapularis tendon was torn with mild- moderate retraction away from the lesser tuberosity. This was not initially appreciated until the synovium was minimally debrided which revealed clear tearing. The long head of the biceps tendon was torn in a moderate grade partial-thickness manner more so on the deep surface at the edge of the humeral head but did have splitting into the biceps origin on the glenoid tubercle. The superior rotator cuff tendon was found to be intact on the articular surface with intact sail sign. On the bursal side this supraspinatus/infraspinatus showed only mild fraying without clear tearing. A probe was not able to penetrate this tissue. The labrum was torn in the superior and anterior aspects more so than inferior. No loose bodies were identified within the pouch or subscapularis recess. PROCEDURE: Following a thorough discussion of risks, benefits, and alternatives, consent was obtained and the right shoulder was marked. The patient was brought to the operating room and placed supine on the operating table. Induction of anesthesia was completed after preoperative supraclavicular block was administered in preop holding. Appropriate time out was performed identifying proper patient, site, and procedure. 2 g IV Ancef was administered within 1 hour of incision preoperatively. The right upper extremity was prepped and draped in the appropriate sterile fashion using ChloraPrep prep. This was after the patient was positioned in the beach chair with their head in neutral alignment and all bony prominences well padded. The shoulder was insufflated with 20mL of normal saline via an 18g spinal needle from a posterior approach. An 11 blade skin incision allowed a blunt trochar to be inserted and diagnostic arthroscopy to be performed with the findings as noted above. An anterior portal was established with an outside in technique. This allowed the probe to be inserted and confirm the diagnostic arthroscopic findings. The shaver was then inserted and allowed debridement of the anterior as well as inferior and superior labrum. Additionally, the long of the biceps was released from the bicipital tuberosity for arthroscopic tenodesis. After caption the biceps with a FiberLink suture, it was released from the tuberosity. It was then externalized outside of this anterior superolateral portal where the tendon was captured in a strong manner with this FiberLink passed with scorpion needle multiple times in a locking fashion to have excellent control. However, it was brought back into the shoulder joint and via an arthroscopic approach the tenodesis was completed as noted. The stump was debrided with a shaver. Following this, the upper border subscapularis was repaired after debriding the lesser tuberosity with the shaver and [place] cautery. Subscapularis was captured in horizontal mattress fashion with a fiber tape suture. The tails were brought to a single anchor in the lesser tuberosity with excellent reapproximation of the subscap tendon and good excursion/tension. Of note, the biceps tenodesis sutures were placed into this anchor as well. The anchor was placed near the bicipital groove/lesser tuberosity junction. The bicipital groove was prepared with a rasp and a bur. This is also the case for the lesser tuberosity for the subscap repair. Excellent reapproximation of the subscap was achieved as was the biceps tenodesis. Thereafter, the subacromial space was entered. Here, a complete bursectomy and partial acromioplasty/subacromial decompression was performed with a combination of radiofrequency ablator, the shaver, and a 5.5 mm bur. Additionally, distal clavicle excision was performed with the bur. 8 mm of distal clavicle was resected based on the with of our bur. Further inspection of the supraspinatus and infraspinatus rotator cuff was performed. This identified only mild fraying on the bursal side. A probe was utilized touching the rotator cuff from the bursal side and showed no poor in tegrity tissue. Rather, the tissue held up to probeing. The shoulder was placed through range of motion and found to be stable. Instruments were removed. Excess fluid was drained, closure performed with 4-0 Monocryl and Steri-Strips. Dressings were applied. Sling was applied. The patient was awoken from anesthesia and transferred to the PACU in stable condition. A skilled assistant professor of physics was critical for this case to aid in patient positioning, limb positioning, skill to manipulate arthroscopic instruments and camera, suture management, patient safety, and closure. PLAN: 1. Elbow, forearm, wrist and digit range of motion as tolerated. 2. Encouraged ice. 3. Oxycodone for pain as needed. 4. Sling at all times except for ROM and showering. 5. Follow up with PA visit in 1-2 weeks for wound check. Initiate physical therapy following that visit for passive range of motion. Initiate active assisted range of motion at 4 weeks. May do pendulums now.
== END 2024-07-18 11:20 | disposition home or self-care (01) ==
LOC: OR 06:09
PROVIDERS: PCP Family Medicine; Visit Provider Orthopaedic Surgery Sports Medicine
PROC: (CPT 29805; principal; 2024-07-18 07:30)
DX: M75.101 Unspecified rotator cuff tear or rupture of right shoulder, not specified as traumatic (principal); S46.111A Strain of muscle, fascia and tendon of long head of biceps, right arm, initial encounter; S43.431A Superior glenoid labrum lesion of right shoulder, initial encounter; M19.011 Primary osteoarthritis, right shoulder; M75.41 Impingement syndrome of right shoulder; G89.18 Other acute postprocedural pain
CPT/HCPCS: 29827; 29828; 29824; 29826; 01630; 64415; 76942; C1713; J0171; J0330; J0690; J1100; J2250; J2371; J2405; J2704; J2710; J2795; J3010; J7030; L3670

== ENCOUNTER 2024-10-10 09:45 | Outpatient (RCR) | payer OTHER, SELFPAY | END 2025-01-22 14:42 | disposition home or self-care (01) | PROVIDERS: PCP Family Medicine; Visit Provider Orthopaedic Surgery Sports Medicine | DX: Z47.89 Encounter for other orthopedic aftercare (principal); M25.511 Pain in right shoulder; M25.611 Stiffness of right shoulder, not elsewhere classified; M19.011 Primary osteoarthritis, right shoulder; M19.012 Primary osteoarthritis, left shoulder; M75.21 Bicipital tendinitis, right shoulder; M75.22 Bicipital tendinitis, left shoulder; Z51.89 Encounter for other specified aftercare | CPT/HCPCS: 97012; 97110; 97140; 97161 ==